=== PATIENT | female | born 2000 | race Caucasian/White ===

== ENCOUNTER 2021-10-29 12:24 | Emergency (ER) | payer BC, OTHER ==
[~2021-10-29] VITALS: Ht 157.5 cm; Wt 77.0 kg
[2021-10-29] MEDS ORDERED: LIDOCAINE HCL/PF 1% 10 MG/ML 5ML VIAL INFIL ONE (15:00)
[2021-10-29 15:47] VITALS: BP 115/67
== END 2021-10-29 15:49 | disposition home or self-care (01) ==
LOC: ER 12:24
DX: S61.308A Unspecified open wound of other finger with damage to nail, initial encounter (principal); Y08.89XA Assault by other specified means, initial encounter; Y93.89 Activity, other specified; Y92.9 Unspecified place or not applicable
CPT/HCPCS: 73130; 99283